=== PATIENT | female | born 1955 | race Two or more races ===

== ENCOUNTER 2019-11-15 12:37 | Emergency (ER) | payer MEDICAID ==
[~2019-11-15] VITALS: Ht 162.6 cm; Wt 72.6 kg
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
[2019-11-15] MEDS ORDERED: Methocarbamol 750mg tab ORAL ONE (13:30)
[2019-11-15 14:30] VITALS: BP 138/79
[2019-11-15] MEDS ORDERED: IBUPROFEN600 MG ORAL (15:48)
[2019-11-15] MEDS ORDERED: ROBAXIN-750750 MG PO (15:48)
[2019-11-15] MEDS ORDERED: NORCO 5-325 TA1 EACH ORAL (15:48)
[2019-11-15 16:00] VITALS: BP 138/79
--- NOTE | 2019-11-15 16:00 | NUR ---
ER DISCHARGE NOTE: Patient cleared for DC by Dr. Wild. VSS, no s/s of acute distress. Patient walks with steady gait, ID band removed. All belongings with patient.is able to ambulate with steady gait. pt took all belongings.
--- NOTE | 2019-11-15 16:02 | Diagnostic Imaging Report ---
Indication: Left wrist pain Findings: 3 views of the left wrist were obtained. Bones are osteopenic. No acute fracture is identified. No malalignment seen. Soft tissue swelling noted. Bones are osteopenic. IMPRESSION: No acute fracture
--- NOTE | 2019-11-15 16:03 | Diagnostic Imaging Report ---
Indications: Right hip pain Findings: Single view of the right hip was obtained. No obvious acute fracture seen. There is a intramedullary saw with proximal locking screws. Moderate degree of soft tissue ossification noted about the fracture. Bones are osteopenic. IMPRESSION: Limited evaluation on a single projection showing no obvious fracture
--- NOTE | 2019-11-15 16:03 | Diagnostic Imaging Report ---
Indication: Right knee Pain 3 views of the right knee were obtained. Findings: Visualization of the distal portion of the intramedullary saw within the femur noted. No acute fracture is seen. Bones are osteopenic. There is no joint effusion definitely identified. No malalignment identified. IMPRESSION: No acute fracture seen
--- NOTE | 2019-11-15 16:04 | Diagnostic Imaging Report ---
Indication: Back pain Comparison: None Findings: 2 views of the thoracic spine were obtained. Bones are osteopenic. There is a mild generalized kyphosis of the thoracic spine without evidence of an acute fracture. Mild narrowing of the intervertebral discs are also present. IMPRESSION: No acute injury appreciated
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
== END 2019-11-15 16:00 | disposition home or self-care (01) ==
LOC: EDSEX 12:37 → EMR 13:32
DX: T14.8XXA Other injury of unspecified body region, initial encounter (principal); I10 Essential (primary) hypertension; V03.90XA Pedestrian on foot injured in collision with car, pick-up truck or van, unspecified whether traffic or nontraffic accident, initial encounter; Y93.01 Activity, walking, marching and hiking; Y92.411 Interstate highway as the place of occurrence of the external cause
CPT/HCPCS: 72070; 73110; 73500; 73562; Z7502; 99284